=== PATIENT | male | born 1980 | race Two or more races ===

== ENCOUNTER 2016-12-11 17:16 | Emergency (ER) | payer OTHER ==
[~2016-12-11] VITALS: Ht 162.6 cm; Wt 72.6 kg
[2016-12-11 18:00] VITALS: BP 131/84
[2016-12-11] MEDS ORDERED: Methocarbamol 750mg tab ORAL ONE (18:30)
[2016-12-11] MEDS ORDERED: Morphine Sulfate 4mg/ml Inj IM ONE (18:30)
[2016-12-11] MEDS ORDERED: NKM (19:20)
[2016-12-11] MEDS ORDERED: IBUPROFEN600 MG ORAL (21:04)
[2016-12-11] MEDS ORDERED: NORCO 5-325 TA1 EAC1 ORAL (21:04)
[2016-12-11] MEDS ORDERED: Norco 5mg/325mg tab ORAL ONE (21:15)
[2016-12-11 21:29] VITALS: BP 135/84
[2016-12-11 21:30] VITALS: BP 131/84
--- NOTE | 2016-12-11 21:38 | Emergency Room Report ---
History of Present Illness General Chief Complaint: Lower Back Pain or Injury Source: Patient Present Illness HPI The patient is a 36-year-old male presenting for back pain. He states that he was at work and lifted a heavy object and felt immediate pain in the mid lower back. Described as a 9/10 dull ache and does not radiate. Worse with movement. Denies previous injury to the back. He denies any numbness or tingling of the legs. He denies extremity weakness, nausea, vomiting, fever, chills, chest pain, shortness of breath Allergies: Coded Allergies: No Known Allergies (Unverified , 12/11/16) Patient History Past Medical History: see triage record Pertinent Family History: none Reviewed Nursing Documentation: PMH: Agreed, PSxH: Agreed Nursing Documentation-PMH Past Medical History: No Stated History Review of Systems All Other Systems: negative except mentioned in HPI Physical Exam Vital Signs Date Time Temp Pulse Resp B/P Pulse Ox O2 Delivery O2 Flow Rate FiO2 12/11/16 17:07 98.4 96 16 137/88 99 Room Air Sp02 EP Interpretation: reviewed, normal General Appearance: no apparent distress, alert, GCS 15, non-toxic Head: normocephalic, atraumatic Eyes: bilateral eye PERRL, bilateral eye normal inspection ENT: hearing grossly normal, normal pharynx, no angioedema, normal voice Respiratory: chest non-tender, lungs clear, normal breath sounds, speaking full sentences Gastrointestinal: normal bowel sounds, non tender, soft, non-distended, no guarding, no rebound Genitourinary: normal inspection, no CVA tenderness Musculoskeletal: decreased range of motion, tender - TTP over the R mid L spine and paraspinal muscles Neurologic: alert, oriented x3, responsive, motor strength/tone normal, sensory intact, speech normal Psychiatric: judgement/insight normal, memory normal, mood/affect normal, no suicidal/homicidal ideation Skin: normal color, no rash, warm/dry, well hydrated Medical Decision Making PA Attestation Dr. Beverly is my supervising physician. Patient management was discussed with my supervising physician Diagnostic Impression: Primary Impression: Lumbar strain Qualified Codes: S39.012A - Strain of muscle, fascia and tendon of lower back , initial encounter ER Course The patient is a 36-year-old male presenting for back pain Ddx considered include but not limited to lumbar strain, degenerative disease, muscle spasm, epidural abscess, cauda equina, among others PE: NAD There is tenderness to palpation over the mid lumbar spine as well as the paraspinal muscles. No step-offs. The patient has full range of motion of bilateral lower legs. Sensation is intact CT of the L. spine shows no acute injury The patient is given morphine and Robaxin Pain has continued and the patient is then given [place] and Valium. He'll be discharged home and is to follow up with primary doctor. He needs to follow up with workers compensation. He was informed that he may need MRI if pain continues or worsens. ER precautions are given CT/MRI/US Diagnostic Results CT/MRI/US Diagnostic Results : Imaging Test Ordered: CT L spine Impression No acute injury Last Vital Signs Date Time Temp Pulse Resp B/P Pulse Ox O2 Delivery O2 Flow Rate FiO2 12/11/16 21:30 98.4 73 16 131/84 100 Room Air Status: improved Disposition: HOME, SELF-CARE Condition: Improved Scripts Hydrocodone Bit/Acetaminophen 5-325* (NORCO 5-325 TABLET*) 1 Each Tablet 1 TAB ORAL Q6HR Y for For Pain, #10 TAB Prov: GIAN SHIEN 12/11/16 Ibuprofen* (MOTRIN*) 600 Mg Tablet 600 MG ORAL Q8H Y for For Pain, #30 TAB 0 Refills Prov: GIAN SHINE 12/11/16 Patient Instructions: Lumbosacral Strain, Back Pain, Adult Additional Instructions: I discussed my findings with the patient. All questions and concerns have been answered. Treatment and medication compliance have been addressed. I advised the patient that they need to follow up with PMD in 3-5 days. Return to ED if pain remains or worsens, numbness or tingling occurs, new rash is noticed, fever is noticed, or if needed for any reason. Patient verbalized understanding of discharge instructions. GIAN SHINE Dec 11, 2016 21:38
--- NOTE | 2016-12-12 10:20 | Diagnostic Imaging Report ---
Indications: Low back pain following injury at work Technique: Continuous helical CT imaging of the lumbar spine was performed with automatic exposure control on a Siemens sensation [address] scanner. Axial, coronal, and sagittal images were reconstructed at 3 mm slice thicknesses. CTDI volume(s): 13 mGy Total DLP: 461 mGy-cm Findings: Comparison: None Vertebral alignment is intact. No fracture, facet subluxation or dislocation, paraspinous soft tissue abnormality, or other acute change identified. Intervertebral disc spaces normal in height. Small osteophytes at the margins of the L3-4 and L4-5 disc spaces. No significant facet or ligamentous hypertrophy. Bilateral pars interarticularis defects at L5. 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 No associated significant spondylolisthesis. This correlates with [facility] preliminary report.
== END 2016-12-11 21:35 | disposition home or self-care (01) ==
LOC: EDBD 17:16 → EMR 18:01
DX: S39.012A Strain of muscle, fascia and tendon of lower back, initial encounter (principal); X50.0XXA Overexertion from strenuous movement or load, initial encounter; Y93.9 Activity, unspecified; Y92.9 Unspecified place or not applicable
CPT/HCPCS: 72131; 96372; 99284; J2270